=== PATIENT | female | born 1960 | race Caucasian/White ===

== ENCOUNTER 2018-11-27 23:19 | Emergency (ER) | payer MEDICARE, MEDICAID ==
[~2018-11-27] VITALS: Ht 177.8 cm; Wt 121.2 kg
[2018-11-27 23:24] VITALS: BP 190/122
[2018-11-28] MEDS ORDERED: ketorolac trometh inj. 60 MG/2 ML VIAL IM ONE (03:45)
== END 2018-11-28 04:26 | disposition home or self-care (01) ==
LOC: ER 23:20
DX: M25.512 Pain in left shoulder (principal); G89.29 Other chronic pain; Z98.890 Other specified postprocedural states; Z88.0 Allergy status to penicillin; Z88.8 Allergy status to other drugs, medicaments and biological substances
CPT/HCPCS: 73030; 96372; 99283; J1885

== ENCOUNTER 2018-12-25 11:15 | Outpatient (CLI) | payer MEDICARE, MEDICAID | END 2018-12-25 12:18 | disposition home or self-care (01) | LOC: ORTHO 11:15 | PROVIDERS: ATTEND Orthopaedic Surgery | DX: M50.30 Other cervical disc degeneration, unspecified cervical region (principal) | CPT/HCPCS: 99213 ==

== ENCOUNTER 2019-11-23 06:43 | Day surgery (SDC) | payer MEDICARE, MEDICAID ==
[2019-11-16 11:08] LABS: BASOPHILS % (AUTO) 0.2 % (0-1); EOSINOPHILS # (AUTO) 0.2 X10'3 (0-0.9); EOSINOPHILS % (AUTO) 2.5 % (0-6); LYMPHOCYTES # (AUTO) 1.9 X10'3 (1.1-4.8); LYMPHOCYTES % (AUTO) 22.4 % (21-51); MEAN CORPUSCULAR HEMOGLOBIN 31.7 PG (27.0-31.0); MEAN CORPUSCULAR HGB CONC 34.3 g/dL (33.0-36.5); MEAN CORPUSCULAR VOLUME 92.6 FL (78-98); NEUTROPHILS # (AUTO) 5.4 X10'3 (1.8-7.7); NEUTROPHILS % (AUTO) 62.9 % (42-75); PRE OP HEMATOCRIT 34.5 % (35.0-45.0); PRE OP HEMOGLOBIN 11.8 g/dL (12.0-16.0); PRE OP PLATELET COUNT 201 X10'3 (140-440); RED BLOOD COUNT 3.73 X10'6 (4.20-5.60); RED CELL DISTRIBUTION WIDTH 13.4 % (11.5-14.5)
[2019-11-16 11:21] LABS: ALBUMIN 3.9 G/DL (3.4-5.0); ALBUMIN/GLOBULIN RATIO 1.1 (1.1-1.5); ALKALINE PHOSPHATASE 99 IU/L (46-116); BLOOD UREA NITROGEN 17 MG/DL (7-18); BUN/CREATININE RATIO 14.5 (6.6-38.0); CALCIUM 9.2 MG/DL (8.5-10.1); CHLORIDE 104 MMOL/L (99-107); CREATININE 1.17 MG/DL (0.40-0.90); PRE OP ALT 30 U/L (30-65); PRE OP ANION GAP 10 (8-16); PRE OP AST 24 U/L (10-37); PRE OP BILIRUB, TOTAL 0.6 MG/DL (0.0-1.0); PRE OP GLUCOSE 92 MG/DL (70-104); PRE OP POTASSIUM 4.3 MMOL/L (3.4-5.1); PRE OP SODIUM 141 MMOL/L (135-145); TOTAL CARBON DIOXIDE 26.9 MMOL/L (24-32); TOTAL PROTEIN 7.5 G/DL (6.4-8.2); eGFR 47 ML/MIN
[~2019-11-23] VITALS: Ht 177.8 cm; Wt 116.0 kg
[~2019-11-23 06:43] MED LIST: ALBU18HF2 INH; ASPI-1265 PO; BUPIVAcaine/PF 2.5mg/ml (0.25%) 10ml vial ONE; DOCU-149 PO; HYDR-4353 PO; IBUP-1984 PO; LISI40TA4 PO; LORA10CA PO; PRAV40TA3 PO; TRAZ-256 PO; albuterol 2.5 MG/3 ML nebule NEB ONE; cefazolin/dext.iso 2gm/100ml 100 ML IV ONE; famotidine 20mg tablet PO ONE; ringers solution, lacted 1,000 ML IV SCH
[2019-11-23 06:50] VITALS: BP 140/89
[2019-11-23] MEDS ORDERED: fentaNYL/PF 50MCG/1 ML 2ML syringe IV PRN ×2 (07:15)
[2019-11-23] MEDS ORDERED: ringers solution, lacted 1,000 ML IV SCH (07:15)
[2019-11-23] MEDS ORDERED: morphine 2 MG/ML inj. syringe IV PRN (07:15)
[2019-11-23] MEDS ORDERED: ondansetron/PF 4mg/2ml inj IV PRN (07:15)
[2019-11-23] MEDS ORDERED: hydrALAZINE 20mg/ml inj. IV PRN (07:15)
[2019-11-23] MEDS ORDERED: labetalol 20mg/4ml (5mg/ml) syringe IV PRN (07:15)
[2019-11-23] MEDS ORDERED: morphine 4 MG/ML inj SYRINge IV PRN (07:15)
[2019-11-23] MEDS ORDERED: LIDOcaine 0.5% (5mg/ml) 50ml vial ONE (07:20)
[2019-11-23] MEDS ORDERED: fentaNYL/PF 50MCG/1 ML 2ML syringe ONE (08:27)
[2019-11-23] MEDS ORDERED: MIDAZolam 5mg/5ml vial ONE (08:28)
[2019-11-23 09:08] VITALS: BP 117/80
--- NOTE | 2019-11-23 09:08 | NUR ---
Received from OR via , accompanied by Anesthesiologist KRISTEN and report given by Anesthesiolgist. AWAKE IN NO RESP DISTRESS SKIN WARM AND DRY HOB AND RUE ELEVATED, FINGERS WARM PINK GOOD CAP REFILL AND MOVEMENT. NO CO PAIN. ICE TO WRIST.
[2019-11-23 09:18] VITALS: BP 119/82
[2019-11-23 09:28] VITALS: BP 122/79
[2019-11-23 09:38] VITALS: BP 125/78
[2019-11-23 09:48] VITALS: BP 120/76
--- NOTE | 2019-11-23 09:58 | NUR ---
AWAKE VS WNL NO CO PAIN, DSG DI, FINGERS WARM PINK GOOD CAP REFILL. ICE TO WRIST, DISCH INSTR GIVEN TO PT ANY UNDERSTOOD, TOLERATES LIQUIDS. PT HAS PAIN MEDS AT HOME DISCH HOME WITH . DISCH INSTRUCTIONS GIVEN TO PT AND AND UNDERSTOOD.
== END 2019-11-23 09:58 | disposition home or self-care (01) ==
LOC: PAS 06:43
PROVIDERS: ATTEND Orthopaedic Surgery Hand Surgery
DX: G56.01 Carpal tunnel syndrome, right upper limb (principal); Z79.82 Long term (current) use of aspirin; I10 Essential (primary) hypertension; G47.30 Sleep apnea, unspecified; M17.10 Unilateral primary osteoarthritis, unspecified knee; Z79.899 Other long term (current) drug therapy; Z88.0 Allergy status to penicillin; Z88.8 Allergy status to other drugs, medicaments and biological substances; Z98.890 Other specified postprocedural states
CPT/HCPCS: 29848; 36415; 80053; 82948; 85025; 93005; 94640; 94760; J2001; J2250; J3010; J3490; A4215; A7000; J7120